=== PATIENT | female | born 1935 | race Caucasian/White ===

== ENCOUNTER 2019-08-08 10:31 | Emergency (ER) | payer BC ==
[2019-08-08] MEDS ORDERED: fentaNYL 100 MCG/2 ML SDV IVPUSH ONE ×2 (10:42→11:32)
--- NOTE | 2019-08-08 11:45 | CR ---
Hip Min 2V or 3V Rt CLINICAL HISTORY: Dislocation FINDINGS: Patient has a right hip arthroplasty which is dislocated superiorly. 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
[2019-08-08] MEDS ORDERED: Propofol 200 MG/20 ML SDV ONE (11:55)
--- NOTE | 2019-08-08 12:30 | EDM.PDOC ---
ED HPI GENERAL MEDICAL PROBLEM - General Chief Complaint: Lower Extremity Injury/Pain Stated Complaint: RT HIP DISLOCATION Time Seen by Provider: 08/08/19 11:30 Source of Information: Reports: Patient - History of Present Illness INITIAL COMMENTS - FREE TEXT/NARRATIVE: This is an 83 yo who presents with a dislocation right hip. 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 She felt the hip dislocate approximately two hours prior to arrival while bending over. She has severe pain in the right hip. 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: Musculoskeletal History: Reports: Fracture - Past Surgical History HEENT Surgical History: Reports: Adenoidectomy, Cataract Surgery, Tonsillectomy GI Surgical History: Reports: Appendectomy Female Surgical History: Reports: Hysterectomy, Salpingo-Oophorectomy Musculoskeletal Surgical History: Reports: Hip Replacement Other Musculoskeletal Surgeries/Procedures:: right with 4 dislocations Social & Family History - Tobacco Use Smoking Status *Q: Never Smoker - Caffeine Use Caffeine Use: Reports: Coffee - Recreational Drug Use Recreational Drug Use: No Review of Systems - Review of Systems Review Of Systems: See Below Constitutional: Reports: No Symptoms Eyes: Reports: No Symptoms Ears: Reports: No Symptoms Nose: Reports: No Symptoms Mouth/Throat: Reports: No Symptoms Respiratory: Reports: No Symptoms Cardiovascular: Reports: No Symptoms GI/Abdominal: Reports: No Symptoms Genitourinary: Reports: No Symptoms Musculoskeletal: Reports: Joint Pain Skin: Reports: No Symptoms Neurological: Reports: No Symptoms Psychiatric: Reports: No Symptoms ED EXAM, GENERAL - Physical Exam Exam: See Below Exam Limited By: No Limitations General Appearance: Alert, Mild Distress Ears: Normal External Exam Nose: Normal Inspection Throat/Mouth: Normal Inspection Head: Atraumatic, Normocephalic Respiratory/Chest: Lungs Clear Cardiovascular: Regular Rate, Rhythm GI/Abdominal: Soft, Non-Tender Back Exam: Normal Inspection Extremities: Other (right leg flexed, forshortened, rotated, distal CSM intact) Neurological: Alert, Oriented Psychiatric: Normal Affect, Normal Mood Skin Exam: Warm, Dry ED TRAUMA EXTREMITY PROCEDURES - Joint Reduction Right Hip Sedation: Conscious Sedation Pre-Procedure NV Status: Normal Post-Procedure NV Status: Normal Technique: Traction/Counter Traction Number of Attempts: 1 Post-Reduction Imaging: Completely Reduced Joint Reduction Complications: No Course - Vital Signs Last Recorded V/S: Last Vital Signs Temp 37.1 C 08/08/19 10:38 Pulse 65 08/08/19 10:38 Resp 18 08/08/19 10:38 BP 170/71 H 08/08/19 10:38 Pulse Ox 96 08/08/19 10:38 - Orders/Labs/Meds Meds: Medications Discontinued Medications Generic Name Dose Route Start Last Admin Trade Name Arsalanq PRN Reason Stop Dose Admin Fentanyl 50 mcg 08/08/19 10:42 08/08/19 10:53 Sublimaze IVPUSH 08/08/19 10:43 50 mcg ONETIME ONE Administration Fentanyl 50 mcg 08/08/19 11:32 08/08/19 11:37 Sublimaze IVPUSH 08/08/19 11:33 50 mcg ONETIME ONE Administration Propofol Confirm 08/08/19 11:55 Diprivan 20 Ml Administered 08/08/19 11:56 Dose 200 mg .ROUTE .STK-MED ONE - Re-Assessments/Exams Free Text/Narrative Re-Assessment/Exam: 83 yo presents with dislocated R prosthetic hip. This happen multiple times before. The joint was easily reduced with procedural sedation by anesthesia. CSM intact before and after procedure She has ortho follow up next week as they are planning to do a repeat jt replacement. She also has a brace to wear. 08/08/19 19:01 Departure - Departure Time of Disposition: 12:30 Disposition: Home, Self-Care 01 Clinical Impression: Hip dislocation, right Qualifiers: Encounter type: initial encounter Qualified Code(s): S73.004A - Unspecified dislocation of right hip, initial encounter - Discharge Information Instructions: Hip Dislocation Referrals: PCP,None [Primary Care Provider] - Forms: ED Department Discharge Additional Instructions: Please follow up with your orthopedic doctor as planned to make a intermediate project manager strategy for your hip Sepsis Event Note (ED) - Evaluation Sepsis Screening Result: No Definite Risk - Focused Exam Vital Signs: Vital Signs Temp Pulse Resp BP Pulse Ox 08/08/19 10:38 37.1 C 65 18 170/71 H 96 08/08/19 10:35 37.1 C 65 18 170/71 H 96
--- NOTE | 2019-08-08 13:51 | CR ---
Hip Min 1V Rt CLINICAL HISTORY: Postreduction FINDINGS: Previous dislocation of the right hip duraplasty has been used. No fracture seen. IMPRESSION: Status post reduction right hip prosthesis dislocation
== END 2019-08-08 13:04 | disposition home or self-care (01) ==
LOC: JP.ED 10:31
DX: T84.020A Dislocation of internal right hip prosthesis, initial encounter (principal); I10 Essential (primary) hypertension; E78.00 Pure hypercholesterolemia, unspecified; Z88.2 Allergy status to sulfonamides; Z79.82 Long term (current) use of aspirin; Z79.899 Other long term (current) drug therapy; X58.XXXA Exposure to other specified factors, initial encounter
CPT/HCPCS: 27265; 27266; 73501; 73502; 96374; 96376; 99282; 99283; J2704; J3010